=== PATIENT | male | born 1975 | race Caucasian/White ===

== ENCOUNTER 2016-12-06 20:01 | Emergency (ER) | payer OTHER ==
[~2016-12-06 20:01] MED LIST: BUPR1TAB29 PO; DIVA500T PO; LIDO2GEL11 TOPICAL; NAPR375T PO; OMEP20TA PO
[2016-12-06 20:03] VITALS: BP 134/92; PULSE 66; RESP 20; TEMP 97.9; O2SAT 100
[2016-12-06] MEDS ORDERED: CYCL1TAB29 PO (20:15)
[2016-12-06] MEDS ORDERED: predniSONE 20 MG TAB PO ONE (20:15)
[2016-12-06] MEDS ORDERED: PRED10PA2 PO (20:15)
[2016-12-06] MEDS ORDERED: ACETAMINOPHEN/HYDROcodone 325 MG/10 MG TAB PO ONE (20:15)
[2016-12-06] MEDS ORDERED: NORC5TAB PO (20:15)
[2016-12-06] MEDS ORDERED: CYCLOBENZAPRINE HCL 10 MG TAB PO ONE (20:15)
--- NOTE | 2016-12-06 20:15 | PD ---
HPI . Low back and left leg pain Chief Complaint: Musculoskeletal Complaint Time Seen by Provider: 20:12 Travel History International Travel<30 days: No Contact w/Intl Traveler<30days: No Traveled to known affect area: No History of Present Illness HPI Patient presents with a 3 day history of gradually worsening low back and left leg pain. Patient reports a previous similar history. He states that he is intermittently bothered by sciatica. He reports no trauma. He denies fever or bowel or bladder incontinence. He states that he has taken one Advil this morning with no real relief of his pain. Pain is exacerbated by any kind of movement. He reports no relieving factors. [id number]: Low back and left leg SEVERITY: Severe DURATION: 3 days TIMING: Gradually worsening CONTEXT: History of chronic back problems MODIFYING FACTORS: Exacerbated by movement. Relieved by nothing. ASSOCIATED SYMPTOMS: No associated fever or incontinence PFSH Social History Tobacco Use: No Allergies-Medications (Allergen,Severity, Reaction): Coded Allergies: No Known Allergies (Unverified , 12/06/16) Reported Meds & Prescriptions Reported Meds & Active Scripts Active [place] (Hydrocodone-Acetaminophen) 5-325 mg Tab 1 Tab PO Q4H PRN Flexeril (Cyclobenzaprine HCl) 10 Mg Tab 10 Mg PO TID Prednisone (48) 10 mg tab Dose Pack (Prednisone) 10 Mg Dspk 10 Mg PO DIRECTED Bupropion HCl ER 12 HR (Bupropion HCl) 150 Mg Tab 150 Mg PO DAILY Divalproex DR (Divalproex Sodium) 500 Mg Tabdr 500 Mg PO TID Reported Lidocaine Topical (Lidocaine HCl) 2 % Jel 1 Applic TOPICAL DAILY Naproxen 375 Mg Tab 375 Mg PO BID Omeprazole 20 Mg Tab 20 Mg PO DAILY Review of Systems Except as stated in HPI: all other systems reviewed are Neg General / Constitutional: No: Fever, Chills Gastrointestinal: No: Changes in Bowel Habits Genitourinary: No: Incontinence Musculoskeletal: Positive: Myalgias, Pain (left low back and leg) Physical Exam Narrative GENERAL: Awake and alert and in no acute distress. SKIN: Warm and dry. CARDIOVASCULAR: Regular rate and rhythm. RESPIRATORY: No accessory muscle use. MUSCULOSKELETAL: No obvious deformities. No edema. Tender at the left SI joint. Internal rotation of the left hip exacerbates the pain. Straight leg raise also exacerbates the pain. NEUROLOGICAL: Awake and alert. No obvious cranial nerve deficits. Motor grossly within normal limits. Normal speech. PSYCHIATRIC: Appropriate mood and affect; insight and judgment normal. Data Data Last Documented VS Vital Signs Date Time Temp Pulse Resp B/P Pulse Ox O2 Delivery O2 Flow Rate FiO2 12/06/16 20:03 97.9 66 20 134/92 100 Orders Prednisone (Deltasone) (12/06/16 20:15) Acetamin-Hydrocod 325-10 Mg ([place] 10-32 (12/06/16 20:15) Cyclobenzaprine (Flexeril) (12/06/16 20:15) [facility] Medical Decision Making Medical Screen Exam Complete: Yes Emergency Medical Condition: Yes Differential Diagnosis Differential diagnosis includes but is not limited to muscular low back pain, DDD, spinal stenosis, epidural abscess, sciatica, kidney infection or stone. Narrative Course Patient presents for treatment of left low back pain and leg pain. He has a history of previous sciatica. He has no alarming symptoms such as fever or incontinence. He will be treated symptomatically for her sciatica. Diagnosis Primary Impression: Left sided sciatica Patient Instructions: General Instructions, Narcotic given in the ED, Sciatica (DC) Med/Other Pt SpecificInfo: Prescription(s) given Scripts Hydrocodone-Acetaminophen ([place])5-325 mg Tab1 Tab PO Q4H PRN (PAIN) #12 TAB Ref 0 Prov:Petra Manzo MD 12/06/16 Cyclobenzaprine (Flexeril)10 Mg Tab10 Mg PO TID #90 TAB Ref 0 Prov:Petra Manzo MD 12/06/16 Prednisone (48) 10 mg tab Dose Pack 10 Mg Dspk10 Mg PO DIRECTED #1 DSPK Ref 0 Prov:Petra Manzo MD 12/06/16 Petra Manzo MD Dec 06, 2016 20:15
[2016-12-06 20:59] VITALS: RESP 16
== END 2016-12-06 20:59 | disposition home or self-care (01) ==
LOC: PHED 20:01 → PHEFT 20:59
DX: M54.32 Sciatica, left side (principal)
CPT/HCPCS: 99283; J7512